=== PATIENT | male | born 1995 | race Two or more races ===

== ENCOUNTER 2024-03-01 23:37 | Emergency (ER) | payer OTHER ==
[~2024-03-01] VITALS: Ht 180.3 cm; Wt 111.1 kg
[2024-03-02 00:11] VITALS: BP 148/104; TEMP 98.6
[2024-03-02] MEDS ORDERED: SILV50CR32 TP (00:31)
[2024-03-02 00:39] VITALS: O2SAT 98
== END 2024-03-02 00:40 | disposition home or self-care (01) ==
LOC: ER 23:40
DX: T23.202A Burn of second degree of left hand, unspecified site, initial encounter (principal); X15.0XXA Contact with hot stove (kitchen), initial encounter; Y93.89 Activity, other specified; Y92.89 Other specified places as the place of occurrence of the external cause; Y99.8 Other external cause status